=== PATIENT | male | born 1970 | race Caucasian/White ===

== ENCOUNTER 2021-01-23 17:53 | Emergency (ER) | payer SELFPAY ==
--- NOTE | 2021-01-23 18:08 | EDM.PDOC ---
ED HPI GENERAL MEDICAL PROBLEM - General Chief Complaint: Neurological Problem Stated Complaint: [facility] Time Seen by Provider: 01/23/21 17:56 Source of Information: Reports: Patient, EMS History Limitations: Reports: No Limitations - History of Present Illness INITIAL COMMENTS - FREE TEXT/NARRATIVE: Eric is a 50-year-old male presenting to the ED for evaluation of nonconvulsive epileptic seizure. Patient was in his usual state of health until he started develop right-sided numbness, tingling, and weakness in the upper extremity, chest, and neck. 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 His last seizure was 4-1/2 years ago. The patient is on no medications. He reports that the seizure today lasted about 45 minutes but is now completely resolved and he has no residual symptoms. It has been 4-1/2 years since he has had any imaging of his brain. Denies any change in sleep, appetite, vision, fever, chills, nausea, vomiting, or diarrhea. He has had no chest pain or shortness of breath. He does smoke and has been coughing likely due to the smoking resulting in some irritation in his airways. He does drink about one bottle of wine a day. He is on no illicit drugs. - Related Data Allergies Allergy/AdvReac Type Severity Reaction Status Date / Time No Known Allergies Allergy Verified 01/23/21 18:00 Home Meds: Home Meds NK [No Known Home Meds] 01/23/21 [History] ED ROS GENERAL - Review of Systems Review Of Systems: See Below Constitutional: Reports: No Symptoms HEENT: Reports: No Symptoms Respiratory: Reports: No Symptoms Cardiovascular: Reports: No Symptoms Endocrine: Reports: No Symptoms GI/Abdominal: Reports: No Symptoms : Reports: No Symptoms Musculoskeletal: Reports: No Symptoms Skin: Reports: No Symptoms Neurological: Reports: Numbness (Right neck, chest, and upper extremity during the nonconvulsive seizure), Seizure (Nonconvulsive), Tingling Psychiatric: Reports: No Symptoms Hematologic/Lymphatic: Reports: No Symptoms Immunologic: Reports: No Symptoms - Physical Exam Exam: See Below Exam Limited By: No Limitations General Appearance: Alert, No Apparent Distress Eye Exam: Bilateral Eye: EOMI, PERRL Nose: Normal Inspection, Normal Mucosa Throat/Mouth: Normal Inspection, Normal Lips, Normal Teeth, Normal Gums, Normal Oropharynx, Normal Voice, No Airway Compromise Head Exam: Atraumatic, Normocephalic Neck: Normal Inspection, Supple, Non-Tender, Full Range of Motion. No: Lymphadenopathy (R), Lymphadenopathy (L) Respiratory/Chest: No Respiratory Distress, Lungs Clear, Normal Breath Sounds Cardiovascular: Normal Peripheral Pulses, Regular Rate, Rhythm GI/Abdominal: Normal Bowel Sounds, Soft, Non-Tender Neuro Exam (Abbreviated): Alert, Oriented, CN II-XII Intact, Normal Cognition, Normal Gait, No Motor/Sensory Deficits Back Exam: Normal Inspection, Full Range of Motion Extremities: Normal Inspection, Normal Range of Motion Psychiatric: Normal Affect, Normal Mood Skin Exam: Warm, Dry, Intact, Normal Color Course - Vital Signs Last Recorded V/S: Last Vital Signs Temp 36.1 C 01/23/21 18:07 Pulse 86 01/23/21 18:07 Resp 14 01/23/21 18:07 BP 139/82 01/23/21 18:07 Pulse Ox 96 01/23/21 18:07 - Orders/Labs/Meds Orders: Active Orders 24 hr Category Date Time Status Chest 2V [CR] Stat Exams 01/23/21 18:13 Taken Labs: Laboratory Tests 01/23/21 01/23/21 Range/Units 18:33 18:33 WBC 7.4 (4.5-11.0) K/uL RBC 4.10 L (4.30-5.90) M/uL Hgb 14.8 (12.0-15.0) g/dL Hct 42.1 (40.0-54.0) % MCV 103 H (80-98) fL MCH 36 H (27-31) pg MCHC 35 (32-36) % Plt Count 217 (150-400) K/uL Neut % (Auto) 69 H (36-66) % Lymph % (Auto) 17 L (24-44) % Catahoula % (Auto) 14 H (2-6) % Eos % (Auto) 1 L (2-4) % Baso % (Auto) 1 (0-1) % Sodium 139 L (140-148) mmol/L Potassium 3.9 (3.6-5.2) mmol/L Chloride 101 (100-108) mmol/L Carbon Dioxide 27 (21-32) mmol/L Anion Gap 14.9 H (5.0-14.0) mmol/L BUN 12 (7-18) mg/dL Creatinine 0.9 (0.8-1.3) mg/dL Est Cr Clr Drug Dosing 109.74 mL/min Estimated GFR (MDRD) > 60 (>60) Glucose 133 H (74-106) mg/dL Calcium 9.4 (8.5-10.1) mg/dL Total Bilirubin 0.3 (0.2-1.0) mg/dL AST 30 (15-37) U/L ALT 34 (12-78) U/L Alkaline Phosphatase 51 (46-116) U/L Total Protein 7.4 (6.4-8.2) g/dL Albumin 4.3 (3.4-5.0) g/dL Globulin 3.1 (2.3-3.5) g/dL Albumin/Globulin Ratio 1.4 (1.2-2.2) - Re-Assessments/Exams Free Text/Narrative Re-Assessment/Exam: 01/23/21 19:10 I reviewed the patient's labs, chest x-ray and CT of the brain. There are no acute findings that are worrisome. The CT of the brain does show calcification along the left parietal region secondary to chronic dural venous congestion in the presence of an arteriovenous malformation. No evidence for hemorrhage. There is no loss of the samuels-white stripe. There is no mass- effect. As the patient has completely resolved his symptoms and labs and imaging are unremarkable, I believe he is suitable for discharge home. We will have him establish care with a provider in the area and should he have recurrence of his seizures then I would consider starting him on an ant iepileptic like Keppra, but since it has been over 4 years since his last seizure I am unsure whether to initiate this at this time. Indications return to the ED were discussed and all questions were answered. 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 There was no evidence for any acute bleeding or significant change in your imaging. Your lab work today was unremarkable except for some slight enlargement in your red blood cell size that may be due to either alcohol intake or vitamin B12 deficiency. I would encourage you to establish care with one of the providers in the area to follow this up. We are certainly here for you 19/06 should you have any recurrence of symptoms. Since has been over 4-1/2 years since her last seizure, at this time I do not think we need to start you on antiepileptic medicines. Sepsis Event Note (ED) - Focused Exam Vital Signs: Vital Signs Temp Pulse Resp BP Pulse Ox 01/23/21 18:07 36.1 C 86 14 139/82 96 - Problem List & Annotations (1) Nonconvulsive generalized seizure disorder Status: Acute Priority: High Current Visit: Yes - Problem List Review Problem List Initiated/Reviewed/Updated: Yes - My Orders Last 24 Hours: My Active Orders 01/23/21 18:13 Chest 2V [CR] Stat - Assessment/Plan Last 24 Hours: My Active Orders 01/23/21 18:13 Chest 2V [CR] Stat
--- NOTE | 2021-01-23 19:07 | CRLCT ---
Indication: Seizure, history of cerebral AVM Technique: Nonenhanced axial CT imaging through the head. Coronal reconstructions are provided. Comparison: None Findings: There are curvilinear cortical/subcortical calcifications involving the posterior left superior frontal gyrus and throughout the left parietal lobe, with associated volume loss. Remainder of the brain demonstrates normal volume and attenuation. Alexander-white matter differentiation is preserved. There is no intracranial hemorrhage. The ventricles are normal size. The basal cisterns are clear. The calvarium is intact. The visualized paranasal sinuses and mastoid air cells are aerated. Impression: 1. Curvilinear cortical/subcortical calcifications involving the posterior left superior frontal gyrus and throughout the left parietal lobe, with associated volume loss. 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 Follow-up CTA is recommended, if not recently performed. 2. No evidence of intracranial hemorrhage or cerebral edema. Please note that all CT scans at this facility use dose modulation, iterative reconstruction, and/or weight-based dosing when appropriate to reduce radiation dose to as low as reasonably achievable. Dictated by Umberto Whiting MD @ Jan 23 2021 7:06PM Signed by Dr. Umberto Whiting @ Jan 23 2021 7:06PM
--- NOTE | 2021-01-25 09:22 | CR ---
CHEST: 2 view CLINICAL HISTORY:Cough COMPARISON:None FINDINGS: The heart size, pulmonary vascularity and hilar structures are normal. No infiltrate effusion or pneumothorax is seen. IMPRESSION: No acute cardiopulmonary process.
== END 2021-01-23 19:44 | disposition home or self-care (01) ==
LOC: JP.ED 17:53
DX: G40.409 Other generalized epilepsy and epileptic syndromes, not intractable, without status epilepticus (principal)
CPT/HCPCS: 36415; 70450; 71046; 71046-26; 80053; 85025; 99283; 99284-25